=== PATIENT | male | born 1930 | race Caucasian/White ===

== ENCOUNTER 2019-07-28 06:37 | Day surgery (SDC) | payer OTHER ==
[~2019-07-28] VITALS: Ht 172.7 cm; Wt 72.6 kg
[2019-07-28] MEDS ORDERED: CEFAZOLIN SOD 2 GM in D5W 50 ML IV ONE (07:15)
[2019-07-28] MEDS ORDERED: LIDOCAINE JELLY 5 ML TUBE TP ONE (09:30)
[2019-07-28] MEDS ORDERED: GLYCOPYRROLATE 0.2 MG/ML VIAL IJ ONE (09:30)
[2019-07-28] MEDS ORDERED: ONDANSETRON HCL 4 MG/2 ML VIAL IVP ONE (09:30)
[2019-07-28] MEDS ORDERED: BUPIVACAINE /EPINEPHRINE/PF 0.25% 30 ML VIAL INJ ONE (09:30)
[2019-07-28] MEDS ORDERED: LR 1,000 ML IV.SOLN IV ONE (09:30)
[2019-07-28] MEDS ORDERED: MIDAZOLAM HCL 5 MG/5 ML VIAL IVP ONE (09:30)
[2019-07-28] MEDS ORDERED: NS IRRIG SOLN 1000 ML IR ONE (09:30)
[2019-07-28] MEDS ORDERED: NEOSTIGMINE METHYLSULFATE 1 MG/ML, 10 ML VIAL IVP ONE (09:30)
[2019-07-28] MEDS ORDERED: ROCURONIUM BROMIDE 10 MG/ML (ZEMURON) IV ONE (09:30)
[2019-07-28] MEDS ORDERED: SEVOFLURANE 15 MIN GAS INH ONE (09:30)
[2019-07-28] MEDS ORDERED: fentaNYL CITRATE/PF 100 MCG/2 ML AMP IVP ONE (09:30)
[2019-07-28] MEDS ORDERED: PROPOFOL 200MG/ 20ML VIAL (DIPRIVAN) IV ONE (09:30)
[2019-07-28] MEDS ORDERED: FLUMAZENIL 0.1 MG/ML IVP ONE (09:30)
[2019-07-28] MEDS ORDERED: LR 1,000 ML IV SCH (10:18)
[2019-07-28] MEDS ORDERED: BUPIVACAINE LIPOSOME/PF 266 MG/20 ML VIAL INFIL ONE ×2 (10:21→10:23)
[2019-07-28] MEDS ORDERED: METOCLOPRAMIDE HCL 10 MG/2 ML VIAL IVP PRN ×2 (10:30→10:45)
[2019-07-28] MEDS ORDERED: MORPHINE 4 MG/ML INJ. SYRINGE IVP PRN ×3 (10:30)
[2019-07-28] MEDS ORDERED: HYDROcodone/ACETAMIN 5-325 MG TAB (NORCO/ VICODIN) PO PRN ×2 (10:45)
[2019-07-28 11:36] VITALS: BP_SYST 113
== END 2019-07-28 13:45 | disposition home or self-care (01) ==
LOC: SDS 06:37 → SMU 06:37 → SDS 13:45
PROVIDERS: ATTEND Surgery
DX: K64.4 Residual hemorrhoidal skin tags (principal); K64.8 Other hemorrhoids; K60.2 Anal fissure, unspecified; D04.5 Carcinoma in situ of skin of trunk; Z90.89 Acquired absence of other organs
CPT/HCPCS: 11602; 46255; 88304; 88305; C9290; J0690; J2250; J2405; J2704; J2710; J3010; J3490 ×3; J7060; J7120